=== PATIENT | male | born 1980 ===

== ENCOUNTER 2022-05-23 13:07 | Inpatient (IN) | payer OTHER ==
[2022-05-23] MEDS ORDERED: MORPHINE 4 MG/1 ML INJ IV ONE (13:44)
[2022-05-23] MEDS ORDERED: PANTOPRAZOLE 40 MG INJ IV ONE (13:44)
[2022-05-23] MEDS ORDERED: SODIUM CHLORIDE 0.9% 1000 ML 1,000 ML IV ONE (13:44)
[2022-05-23] MEDS ORDERED: THIAMINE 100 MG, FOLIC ACID 1 MG, MULTIPLE VITAMIN INJ, ADULT 10 ML in SODIUM CHLORIDE ... IV ONE (13:44)
[2022-05-23] MEDS ORDERED: ONDANSETRON 4 MG/2 ML INJ IV ONE (13:44)
[2022-05-23] MEDS ORDERED: chlordiazePOXIDE 25 MG CAP PO PRN (13:44)
[2022-05-23] MEDS ORDERED: LORazepam 2 MG/ML VIAL IV PRN ×3 (13:44)
[2022-05-23] MEDS ORDERED: diazePAM 10 MG/2 ML SYRINGE IV ONE (13:44)
--- NOTE | 2022-05-23 13:46 | Emergency Department Report ---
ED General Adult HPI - General Chief complaint: Alcohol Stated complaint: STOMACH PAIN AND NAUSEA Time Seen by Provider: 05/23/22 13:36 Source: patient, family Mode of arrival: Wheelchair Limitations: Language Barrier (Family at the bedside translating for patient. This provider is conversant in Azerbaijani) - History of Present Illness Initial comments: The patient was evaluated in the emergency department for symptoms described in the history of present illness. He/she was evaluated in the context of the global COVID-19 pandemic, which necessitated consideration that the patient might be at risk for infection with the virus that causes COVID-19. Institutional protocols and algorithms that pertain to the evaluation of patients at risk for COVID-19 are in a state of rapid change based on information released by regulatory bodies including the CDC and federal and state organizations. These policies and algorithms were followed during the patient's care in the emergency department. Please note that these policies, procedures and recommendations changed on a rapid basis. This is a 42-year-old gentleman who recently completed an alcoholic binge after 2 weeks, presenting to the department today with complaint of diffuse abdominal pain, nausea vomiting cough. No urinary symptoms. He is not homicidal or suicidal. Abdominal pain is diffuse, increases with palpation and decreases with rest. No fever. No hallucinations -: Gradual, days(s) Location: abdomen Severity scale (0 -10): 5 Consistency: constant Improves with: medication, rest Worsens with: movement - Related Data Previous Rx's Medication Instructions Recorded Last Taken Type Magnesium Oxide 400 mg PO QDAY #30 tab 05/23/22 Unknown Rx Metoclopramide [Reglan] 10 mg PO QID PRN #30 tablet 05/23/22 Unknown Rx Multivitamin with Folic Acid [[facility] 400 mcg PO QDAY #30 tablet 05/23/22 Unknown Rx One Daily Essential Tablet] Pantoprazole [Protonix TAB] 20 mg PO BID #60 tab 05/23/22 Unknown Rx Potassium Chloride [K-Dur] 20 meq PO BID #60 tab 05/23/22 Unknown Rx chlordiazePOXIDE [Librium] 25 mg PO Q6H PRN #25 capsule 05/23/22 Unknown Rx Allergies Allergy/AdvReac Type Severity Reaction Status Date / Time No Known Allergies Allergy Unverified 05/23/22 13:24 ED Review of Systems ROS: Stated complaint: STOMACH PAIN AND NAUSEA Other details as noted in HPI Constitutional: denies: fever Eyes: denies: eye discharge ENT: denies: epistaxis Respiratory: cough Cardiovascular: denies: chest pain Gastrointestinal: abdominal pain, nausea, vomiting Genitourinary: denies: dysuria Musculoskeletal: myalgia Neurological: weakness Psychiatric: anxiety. denies: homicidal thoughts, suicidal thoughts ED Past Medical Hx - Past Medical History Previous Medical History?: Yes Additional medical history: Alcohol abuse - Surgical History Past Surgical History?: No - Medications Home Medications: Home Medications Medication Instructions Recorded Confirmed Last Taken Type Magnesium Oxide 400 mg PO QDAY #30 tab 05/23/22 Unknown Rx Metoclopramide [Reglan] 10 mg PO QID PRN #30 tablet 05/23/22 Unknown Rx Multivitamin with Folic Acid [[facility] 400 mcg PO QDAY #30 tablet 05/23/22 Unknown Rx One Daily Essential Tablet] Pantoprazole [Protonix TAB] 20 mg PO BID #60 tab 05/23/22 Unknown Rx Potassium Chloride [K-Dur] 20 meq PO BID #60 tab 05/23/22 Unknown Rx chlordiazePOXIDE [Librium] 25 mg PO Q6H PRN #25 capsule 05/23/22 Unknown Rx ED Physical Exam - General Limitations: No Limitations General appearance: alert, anxious, in distress, obese - Head Head exam: Present: atraumatic, normocephalic - Eye Eye exam: Present: normal appearance, EOMI. Absent: nystagmus - ENT ENT exam: Present: normal orophraynx, mucous membranes dry, normal external ear exam, other (Tongue fasciculations noted) - Neck Neck exam: Present: normal inspection, full ROM. Absent: tenderness, meningismus - Respiratory Respiratory exam: Present: normal lung sounds bilaterally. Absent: respiratory distress, wheezes, rales, rhonchi, stridor, decreased breath sounds - Cardiovascular Cardiovascular Exam: Present: regular rate, normal rhythm, normal heart sounds. Absent: bradycardia, tachycardia, irregular rhythm, systolic murmur, diastolic murmur, rubs, gallop - GI/Abdominal GI/Abdominal exam: Present: soft, distended, tenderness, other (There is diffuse abdominal tenderness.). Absent: guarding, rebound, rigid, pulsatile mass - Rectal Rectal exam: Present: deferred - Extremities Exam Extremities exam: Present: normal inspection, full ROM, other (2+ pulses noted in the bilateral upper and lower extremities. There is no palpable cord. negative Homans sign. Muscular compartments are soft. The pelvis is stable.). Absent: pedal edema, calf tenderness - Back Exam Back exam: Present: normal inspection. Absent: tenderness, CVA tenderness (R), CVA tenderness (L), paraspinal tenderness, vertebral tenderness - Neurological Exam Neurological exam: Present: alert, other (There is no facial droop. The tongue is midline. EOMI. 5 out of 5 strength in 4 extremities.) - Psychiatric Psychiatric exam: Present: anxious. Absent: homicidal ideation, suicidal ideation - Skin Skin exam: Present: warm, dry, intact, normal color. Absent: rash ED Course Vital Signs 05/23/22 05/23/22 05/23/22 13:24 14:52 14:59 Temperature 98.2 F Pulse Rate 89 75 Respiratory 20 18 Rate Blood Pressure 162/99 [Right] O2 Sat by Pulse 97 97 98 Oximetry - Reevaluation(s) Reevaluation #1: 05/23/22 15:15 Differential diagnosis, include but not limited to: Pancreatitis, alcoholic gastritis, alcohol withdrawal, electrolyte derangement, dehydration Assessment and plan: 42-year-old gentleman presenting with diffuse abdominal pain, nausea and vomiting, mild tongue fasciculations, and anxiety, without homicidality or suicidality, in the context of recent alcoholic binge. Suspect alcoholic hepatitis and gastritis, with mild withdrawal component at this time. Place patient on alcohol withdrawal protocol. Treat nausea, vomiting, and replenish electrolytes. Obtain x-ray of the chest, EKG, and CT scan of the abdomen pelvis. Reassess. Have discussed the plan of care with patient and family member at the bedside. They have articulated understanding. He does not meet criteria for 1013 hold or involuntary confinement 05/23/22 16:14 ciwa score initially 7, now 2 Found to have transaminitis, hyperbilirubinemia, metabolic acidosis, all likely secondary to alcoholism. Right upper quadrant ultrasound, as per CT scan of the abdomen pelvis, suggested distended gallbladder. I think cholecystitis is less likely than alcoholic hepatitis. No active vomiting. Tongue fasciculations improved. 05/23/22 16:56 I have reviewed right upper quadrant sound. I do not appreciate evidence of cholecystitis. Patient asking to eat. No active vomiting. He is given Jell-O. Awaiting formal interpretation. 05/23/22 17:00 Patient now vomiting. He will be made NPO. Nursing team uncertain if antiemetics have been administered. This has been escalated to the charge nurse, Jessy Mera to clarify. 05/23/22 17:02 Nursing team reports that they were able to give his Zofran. I have now ordered Reglan. 05/23/22 17:20 Right upper quadrant ultrasound negative for significant findings. Reglan ordered. IV potassium and magnesium infusion. We will determine if patient can tolerate oral feeds after this therapy 05/23/22 18:22 ciwa score 29 Patient has received multiple rounds of antiemetic medication, as well as multiple rounds of benzodiazepines. Patient cannot be medically optimized from the emergency room. I will therefore admit the patient to the medical service. He is endorsed to hospital physician, Dr. Simpson ED Medical Decision Making - Lab Data Result diagrams: 05/23/22 13:49 05/23/22 13:49 Vital Signs 05/23/22 05/23/22 05/23/22 13:24 14:52 14:59 Temperature 98.2 F Pulse Rate 89 75 Respiratory 20 18 Rate Blood Pressure 162/99 [Right] O2 Sat by Pulse 97 97 98 Oximetry Lab Results 05/23/22 05/23/22 05/23/22 Range/Units 13:49 13:49 13:49 WBC 10.4 (4.5-11.0) K/mm3 RBC 5.09 H (3.65-5.03) M/mm3 Hgb 16.2 H (11.8-15.2) gm/dl Hct 47.7 H (35.5-45.6) % MCV 94 (84-94) fl MCH 32 (28-32) pg MCHC 34 (32-34) % RDW 14.1 (13.2-15.2) % Plt Count 121 L (140-440) K/mm3 Lymph % (Auto) 8.6 L (13.4-35.0) % Centre % (Auto) 6.8 (0.0-7.3) % Eos % (Auto) 0.0 (0.0-4.3) % Baso % (Auto) 0.4 (0.0-1.8) % Lymph # (Auto) 0.9 L (1.2-5.4) K/mm3 Centre # (Auto) 0.7 (0.0-0.8) K/mm3 Eos # (Auto) 0.0 (0.0-0.4) K/mm3 Baso # (Auto) 0.0 (0.0-0.1) K/mm3 Seg Neutrophils % 84.2 H (40.0-70.0) % Seg Neutrophils # 8.7 H (1.8-7.7) K/mm3 PT (12.2-14.9) Sec. INR (0.87-1.13) APTT (24.2-36.6) Sec. Sodium 135 L (137-145) mmol/L Potassium 3.2 L (3.6-5.0) mmol/L Chloride 92.1 L (98-107) mmol/L Carbon Dioxide 24 (22-30) mmol/L Anion Gap 22 mmol/L BUN 8 L (9-20) mg/dL Creatinine 0.5 L (0.8-1.3) mg/dL Estimated GFR > 60 ml/min BUN/Creatinine Ratio 16 % Glucose 175 H (75-100) mg/dL Calcium 9.3 (8.4-10.2) mg/dL Magnesium (1.7-2.3) mg/dL Total Bilirubin (0.1-1.2) mg/dL Direct Bilirubin (0-0.2) mg/dL Indirect Bilirubin mg/dL AST (5-40) units/L ALT (7-56) units/L Alkaline Phosphatase (35-129) units/L Total Protein (6.3-8.2) g/dL Albumin (3.9-5) g/dL Albumin/Globulin Ratio % Lipase (13-60) units/L Salicylates (2.8-20.0) mg/dL Acetaminophen (10.0-30.0) ug/mL Plasma/Serum Alcohol < 0.01 (0-0.07) % 05/23/22 05/23/22 05/23/22 Range/Units 13:51 13:51 13:51 WBC (4.5-11.0) K/mm3 RBC (3.65-5.03) M/mm3 Hgb (11.8-15.2) gm/dl Hct (35.5-45.6) % MCV (84-94) fl MCH (28-32) pg MCHC (32-34) % RDW (13.2-15.2) % Plt Count (140-440) K/mm3 Lymph % (Auto) (13.4-35.0) % Centre % (Auto) (0.0-7.3) % Eos % (Auto) (0.0-4.3) % Baso % (Auto) (0.0-1.8) % Lymph # (Auto) (1.2-5.4) K/mm3 Centre # (Auto) (0.0-0.8) K/mm3 Eos # (Auto) (0.0-0.4) K/mm3 Baso # (Auto) (0.0-0.1) K/mm3 Seg Neutrophils % (40.0-70.0) % Seg Neutrophils # (1.8-7.7) K/mm3 PT (12.2-14.9) Sec. INR (0.87-1.13) APTT (24.2-36.6) Sec. Sodium (137-145) mmol/L Potassium (3.6-5.0) mmol/L Chloride (98-107) mmol/L Carbon Dioxide (22-30) mmol/L Anion Gap mmol/L BUN (9-20) mg/dL Creatinine (0.8-1.3) mg/dL Estimated GFR ml/min BUN/Creatinine Ratio % Glucose (75-100) mg/dL Calcium (8.4-10.2) mg/dL Magnesium 1.50 L (1.7-2.3) mg/dL Total Bilirubin (0.1-1.2) mg/dL Direct Bilirubin (0-0.2) mg/dL Indirect Bilirubin mg/dL AST (5-40) units/L ALT (7-56) units/L Alkaline Phosphatase (35-129) units/L Total Protein (6.3-8.2) g/dL Albumin (3.9-5) g/dL Albumin/Globulin Ratio % Lipase 21 (13-60) units/L Salicylates < 0.3 L (2.8-20.0) mg/dL Acetaminophen 5.0 L (10.0-30.0) ug/mL Plasma/Serum Alcohol (0-0.07) % 05/23/22 05/23/22 Range/Units 13:51 13:51 WBC (4.5-11.0) K/mm3 RBC (3.65-5.03) M/mm3 Hgb (11.8-15.2) gm/dl Hct (35.5-45.6) % MCV (84-94) fl MCH (28-32) pg MCHC (32-34) % RDW (13.2-15.2) % Plt Count (140-440) K/mm3 Lymph % (Auto) (13.4-35.0) % Centre % (Auto) (0.0-7.3) % Eos % (Auto) (0.0-4.3) % Baso % (Auto) (0.0-1.8) % Lymph # (Auto) (1.2-5.4) K/mm3 Centre # (Auto) (0.0-0.8) K/mm3 Eos # (Auto) (0.0-0.4) K/mm3 Baso # (Auto) (0.0-0.1) K/mm3 Seg Neutrophils % (40.0-70.0) % Seg Neutrophils # (1.8-7.7) K/mm3 PT 13.5 (12.2-14.9) Sec. INR 0.93 (0.87-1.13) APTT 26.6 (24.2-36.6) Sec. Sodium (137-145) mmol/L Potassium (3.6-5.0) mmol/L Chloride (98-107) mmol/L Carbon Dioxide (22-30) mmol/L Anion Gap mmol/L BUN (9-20) mg/dL Creatinine (0.8-1.3) mg/dL Estimated GFR ml/min BUN/Creatinine Ratio % Glucose (75-100) mg/dL Calcium (8.4-10.2) mg/dL Magnesium (1.7-2.3) mg/dL Total Bilirubin 1.80 H (0.1-1.2) mg/dL Direct Bilirubin 0.5 H (0-0.2) mg/dL Indirect Bilirubin 1.3 mg/dL AST 230 H (5-40) units/L ALT 148 H (7-56) units/L Alkaline Phosphatase 142 H (35-129) units/L Total Protein 7.5 (6.3-8.2) g/dL Albumin 5.0 (3.9-5) g/dL Albumin/Globulin Ratio 2.0 % Lipase (13-60) units/L Salicylates (2.8-20.0) mg/dL Acetaminophen (10.0-30.0) ug/mL Plasma/Serum Alcohol (0-0.07) % - EKG Data -: EKG Interpreted by Nh EKG shows normal: sinus rhythm Rate: normal - EKG Data 05/23/22 15:13 The EKG is interpreted at 14: 28 Sinus rhythm, 73 bpm. Borderline leftward axis deviation, motion artifact, QTC 500 ms. High left ventricular voltage. Abnormal EKG. This is not a STEMI. Q waves noted in the inferior leads. - Radiology Data Radiology results: pending, report reviewed, image reviewed CHEST 1 VIEW INDICATION / CLINICAL INFORMATION: n/v cough chest wall pain. COMPARISON: None available. FINDINGS: SUPPORT DEVICES: None. HEART / MEDIASTINUM: No significant abnormality. LUNGS / PLEURA: No significant pulmonary or pleural abnormality. No pneumothorax. ADDITIONAL FINDINGS: No significant additional findings. IMPRESSION: 1. No acute findings. Signer Lee e: Charity Beckett MD Signed: 05/23/2022 1:01 PM Workstation Name: [id number] CT abdomen pelvis w con INDICATION / CLINICAL INFORMATION: acute abd pain n/v. TECHNIQUE: Axial CT imaging of abdomen and pelvis was obtained with 80 mL Omnipaque 300 IV contrast. Coronal and sagittal reformatted imaging obtained and reviewed. All CT scans at this location are performed using CT dose reduction for ALARA by means of automated exposure control. COMPARISON: None available. FINDINGS: Demonstrates hepatomegaly due to severe hepatic steatosis. No focal hepatic abnormality noted. Spleen, pancreas, kidneys, and adrenal glands all appear within normal limits. The gallbladder is mildly distended but does not appear to be acutely inflamed. No biliary dilatation. Abdominal aorta is unremarkable. CT pelvis with contrast does not demonstrate any mass, free fluid, or focal inflammatory process. A normal appendix is present in the right midabdomen. GI tract is unremarkable. Prostate gland has normal appearance and size. Visualized lung bases are clear. No acute osseous abnormality identified. IMPRESSION: 1. Mild hepatomegaly due to severe hepatic steatosis. 2. Mild gallbladder distention without CT suggestion for acute cholecystitis. If there is clinical concern for acute cholecystitis, right upper quadrant ultrasound is recommended. Signer Name: Charity Beckett MD Signed: 05/23/2022 2:32 PM Workstation Name: [id number] ULTRASOUND ABDOMEN, LIMITED INDICATION / CLINICAL INFORMATION: Abdominal pain, transaminitis. COMPARISON: CT abdomen/pelvis 05/23/2022 FINDINGS: PANCREAS: V isualized portion shows no significant abnormality. LIVER: The liver is enlarged measuring approximately 20 cm. The liver parenchyma is diffusely echogenic consistent with hepatic steatosis. No focal liver mass noted. Normal hepatopedal blood flow in the main portal vein. GALLBLADDER: Gallbladder is mildly distended but otherwise unremarkable. No gallstones or gallbladder wall thickening is present. BILE DUCTS: No significant abnormality. Common bile duct measures 4 mm. FREE FLUID: None. ADDITIONAL FINDINGS: None. IMPRESSION: 1. Hepatomegaly due to severe hepatic steatosis. 2. Mild gallbladder distention. Negative for gallstones and gallbladder wall thickening. Signer Name: Charity Beckett MD Signed: 05/23/2022 4:01 PM Workstation Name: [id number] Critical care attestation.: If time is entered above; I have spent that time in minutes in the direct care of this critically ill patient, excluding procedure time. ED Disposition Clinical Impression: Hypomagnesemia, Hypokalemia, Acute abdominal pain, Alcoholic hepatitis, Dehydration, Acute hyperactive alcohol withdrawal delirium Disposition: 09 ADMITTED INPATIENT Is pt being admited?: Yes Does the pt Need Aspirin: No Condition: Serious Additional Instructions: Avoid consumption of alcohol, tobacco and smoke products. Take a multivitamin on a daily basis as directed, and patient is encouraged to consume foods that are high in potassium and magnesium, such as banana, avocado, and potato. Do not take Motrin, ibuprofen, Naprosyn, Aleve, heavy or spicy foods. Patient may take the prescribed pain medication, nausea medication, as needed, take the Librium as needed for sensation of alcohol withdrawal and shaking, nausea medication as needed, and potassium/magnesium supplementation as directed. Recommend that patient follow-up with a primary care doctor or outdoor emergency care technician within the next week. Do not take metformin medication for the next 2 days if patient takes this medication. Please return to the emergency room right away with new pain, worsened pain, migration of pain, projectile vomiting, change in mental status, confusion, inability tolerate liquid feeds, new, worsened or different symptoms not present on the initial emergency room evaluation Evitar el consumo de alcohol, tabaco y productos de humo. Martelle un multivitamnico diariamente segn las indicaciones, y se alienta al paciente a consumir alimentos con alto contenido de potasio y magnesio, shaneka pltano, aguacate y papa. No tome Motrin, ibuprofeno, Naprosyn, Aleve, comidas pesadas o picantes. El paciente puede aysha el medicamento para el dolor recetado, medicamento para las nuseas, segn sea necesario, aysha Librium segn sea necesario para la sensacin de abstinencia de alcohol y temblores, medicamento para las nuseas segn sea necesario y suplementos de potasio/magnesio segn las indicaciones. Recomiende el seguimiento del paciente con un mdico de atencin primaria o un gastroenterlogo dentro de la prxima semana. No tome metformina loi los prximos 2 lutz si el paciente irene fredo medicamento. Regrese a la benjamin de emergencias de inmediato con dolor nuevo, empeoramiento del dolor, migracin del dolor, vmitos proyectiles, cambio en el estado mental, confusin, incapacidad para tolerar alimentos lquidos, sntomas nuevos, empeorados o diferentes que no estaban presentes en la evaluacin inicial de la benjamin de emergencias. Prescriptions: Multivitamin with Folic Acid [[facility]vs One Daily Essential Tablet] 400 mcg PO QDAY #30 tablet Potassium Chloride [K-Dur] 20 meq PO BID #60 tab chlordiazePOXIDE [Librium] 25 mg PO Q6H PRN #25 capsule PRN Reason: Alcohol Withdrawal Magnesium Oxide 400 mg PO QDAY #30 tab Pantoprazole [Protonix TAB] 20 mg PO BID #60 tab Metoclopramide [Reglan] 10 mg PO QID PRN #30 tablet PRN Reason: Nausea Referrals: [facility] [Provider Group] - 3-5 Days [facility] [place] [Provider Group] - 3-5 Days
--- NOTE | 2022-05-23 14:06 | XRay Report ---
CHEST 1 VIEW INDICATION / CLINICAL INFORMATION: n/v cough chest wall pain. COMPARISON: None available. FINDINGS: SUPPORT DEVICES: None. HEART / MEDIASTINUM: No significant abnormality. LUNGS / PLEURA: No significant pulmonary or pleural abnormality. No pneumothorax. ADDITIONAL FINDINGS: No significant additional findings. IMPRESSION: 1. No acute findings. Signer Name: Charity Beckett MD Signed: 05/23/2022 2:01 PM Workstation Name: [id number]
[2022-05-23 14:24] LABS: Basophils % (Auto) 0.4 % (0.0-1.8); Hematocrit 47.7 % (35.5-45.6); Hemoglobin 16.2 gm/dl (11.8-15.2); Lymphocytes # (Auto) 0.9 K/mm3 (1.2-5.4); Lymphocytes % (Auto) 8.6 % (13.4-35.0); Mean Corpuscular HGB Conc 34 % (32-34); Mean Corpuscular Volume 94 fl (84-94); Monocytes # (Auto) 0.7 K/mm3 (0.0-0.8); Monocytes % (Auto) 6.8 % (0.0-7.3); Platelet Count 121 K/mm3 (140-440); Red Blood Count 5.09 M/mm3 (3.65-5.03); Red Cell Distribution Width 14.1 % (13.2-15.2)
[2022-05-23 14:34] LABS: Blood Urea Nitrogen 8 mg/dL (9-20); Calcium 9.3 mg/dL (8.4-10.2); Hemolysis Index 28
[2022-05-23 14:36] LABS: Bilirubin,Direct 0.5 mg/dL (0-0.2)
[2022-05-23] MEDS ORDERED: MAGNESIUM SULFATE 2 GM/50 ML BAG IV ONE (14:43)
[2022-05-23 14:44] LABS: INR 0.93 (0.87-1.13)
[2022-05-23 14:45] LABS: Partial Thromboplastin Time 26.6 Sec. (24.2-36.6)
[2022-05-23 14:52] LABS: BUN/Creatinine Ratio 16
[2022-05-23] MEDS ORDERED: POTASSIUM CHLORIDE ER 20 MEQ TAB PO ONE (15:11)
[2022-05-23] MEDS ORDERED: MAGNESIUM OXIDE 400 MG TAB PO STA (15:11)
--- NOTE | 2022-05-23 15:36 | Cat Scan Report ---
CT abdomen pelvis w con INDICATION / CLINICAL INFORMATION: acute abd pain n/v. TECHNIQUE: Axial CT imaging of abdomen and pelvis was obtained with 80 mL Omnipaque 300 IV contrast. Coronal and sagittal reformatted imaging obtained and reviewed. All CT scans at this location are performed usi ng CT dose reduction for ALARA by means of automated exposure control. COMPARISON: None available. FINDINGS: Demonstrates hepatomegaly due to severe hepatic steatosis. No focal hepatic abnormality noted. Spleen , pancreas, kidneys, and adrenal glands all appear within normal limits. The gallbladder is mildly distended but does not appear to be acutely inflamed. No biliary dilatation . Abdominal aorta is unremarkable. CT pelvis with contrast does not demonstrate any mass, free fluid, or focal inflammatory process. A n ormal appendix is present in the right midabdomen. GI tract is unremarkable. Prostate gland has lloyd l appearance and size. Visualized lung bases are clear. No acute osseous abnormality identified. IMPRESSION: 1. Mild hepatomegaly due to severe hepatic steatosis. 2. Mild gallbladder distention without CT suggestion for acute cholecystitis. If there is clinical co ncern for acute cholecystitis, right upper quadrant ultrasound is recommended. Signer Name: Charity Beckett MD Signed: 05/23/2022 3:32 PM Workstation Name: [id number]
[2022-05-23] MEDS ORDERED: METOCLOPRAMIDE 10 MG/2 ML INJ IV ONE (17:01)
--- NOTE | 2022-05-23 17:06 | Ultrasound Report ---
ULTRASOUND ABDOMEN, LIMITED INDICATION / CLINICAL INFORMATION: Abdominal pain, transaminitis. COMPARISON: CT abdomen/pelvis 05/23/2022 FINDINGS: PANCREAS: Visualized portion shows no significant abnormality. LIVER: The liver is enlarged measuring approximately 20 cm. The liver parenchyma is diffusely echogen ic consistent with hepatic steatosis. No focal liver mass noted. Normal hepatopedal blood flow in the main portal vein. GALLBLADDER: Gallbladder is mildly distended but otherwise unremarkable. No gallstones or gallbladder wall thickening is present. BILE DUCTS: No significant abnormality. Common bile duct measures 4 mm. FREE FLUID: None. ADDITIONAL FINDINGS: None. IMPRESSION: 1. Hepatomegaly due to severe hepatic steatosis. 2. Mild gallbladder distention. Negative for gallstones and gallbladder wall thickening. Signer Name: Charity Beckett MD Signed: 05/23/2022 5:01 PM Workstation Name: [id number]
[2022-05-23] MEDS: POTASSIUM CHLORIDE 10 MEQ 10 MEQ/100 ML BAG IV SCH (17:39)
--- NOTE | 2022-05-23 18:23 | History and Physical Report ---
History of Present Illness Chief complaint: My stomach hurts History of present illness: 42 YO Male with ETOH Dependence, GERD presents to ED for evaluation. Patient reports "my stomach hurts". Patient states that he has experienced abdominal discomfort over the past 2 days. Patient acknowledges a 2-week alcohol in gestion binge. Patient states that abdominal pain is 5/10, constant, diffuse without exacerbating or alleviating factors. Patient has diminished cognition and provides minimal history. Additional history provided by family members. Patient family reports tremors, abdominal discomfort, agitation, diaphoresis, restlessness, irritability, nausea, and multiple episodes of vomiting. Patient transported to [facility] via private vehicle for further care and evaluation of the aforementioned symptoms. The patient was seen and evaluated in the emergency department. All lab and imaging studies reviewed. Patient found to have a delirium tremens, alcohol withdrawal syndrome, and alcoholic hepatitis, and metabolic encephalopathy. Patient admitted to [facility] due to the increased risk of worsening symptoms and for medical stabilization. Patient initiated on CIWA protocol with an AED. Patient has tangential thinking but has a positive gag reflex and is able to protect his airway without difficulty. No reports of fever, chills, chest pain, palpitation, productive cough, skin rash, recent contact, known exposure to COVID-19. No prior admission for review. All medication listed at time of admission has been reconciled. Advanced care planning conducted in ED. Past History Past Medical History: other (See HPI) Past Surgical History: No surgical history, Other (Reviewed) Social history: single, alcohol abuse Family history: hypertension Medications and Allergies Allergies Allergy/AdvReac Type Severity Reaction Status Date / Time No Known Allergies Allergy Unverified 05/23/22 13:24 Home Medications Medication Instructions Recorded Confirmed Last Taken Type Magnesium Oxide 400 mg PO QDAY #30 tab 05/23/22 Unknown Rx Metoclopramide [Reglan] 10 mg PO QID PRN #30 tablet 05/23/22 Unknown Rx Multivitamin with Folic Acid [Cvs 400 mcg PO QDAY #30 tablet 05/23/22 Unknown Rx One Daily Essential Tablet] Pantoprazole [Protonix TAB] 20 mg PO BID #60 tab 05/23/22 Unknown Rx Potassium Chloride [K-Dur] 20 meq PO BID #60 tab 05/23/22 Unknown Rx chlordiazePOXIDE [Librium] 25 mg PO Q6H PRN #25 capsule 05/23/22 Unknown Rx Active Meds: Active Medications Chlordiazepoxide HCl (Chlordiazepoxide 25 Mg Cap) 50 mg PO Q1HR PRN PRN Reason: CIWA-Ar 8-15 Potassium Chloride (Kcl 10meq/100ml) 10 meq in 100 mls @ 100 mls/hr IV Q1H LAURI Stop: 05/23/22 19:59 Last Admin: 05/23/22 17:39 Dose: 100 mls/hr Lorazepam (Lorazepam 2 Mg/Ml Vial) 2 mg IV Q1HR PRN PRN Reason: CIWA-Ar 8-15 Lorazepam (Lorazepam 2 Mg/Ml Vial) 4 mg IV Q1HR PRN PRN Reason: CIWA-Ar 16-25 Lorazepam (Lorazepam 2 Mg/Ml Vial) 4 mg IV Q15MIN PRN PRN Reason: CIWA-Ar >25 Last Admin: 05/23/22 18:09 Dose: 4 mg Review of Systems ROS unobtainable: due to mental status Exam - Constitutional Vitals: Temp Pulse Resp BP Pulse Ox 98.2 F 75 18 162/99 98 05/23/22 13:24 05/23/22 14:52 05/23/22 14:52 05/23/22 13:24 05/23/22 14:59 General appearance: Present: mild distress - EENT Eyes: Present: PERRL ENT: hearing intact, clear oral mucosa - Neck Neck: Present: supple, normal ROM - Respiratory Respiratory effort: normal Respiratory: bilateral: CTA - Cardiovascular Rhythm: other (Tachycardia) Heart Sounds: Present: S1 & S2. Absent: rub, click - Extremities Extremities: pulses symmetrical, No edema Peripheral Pulses: within normal limits - Abdominal General gastrointestinal: Present: soft, non-tender, non-distended - Integumentary Integumentary: Present: dry, clammy, decreased turgor - Musculoskeletal Musculoskeletal: generalized weakness - Psychiatric Psychiatric: no appropriate mood/affect, no intact judgment & insight, no memory intact - Neurologic Neurologic: CNII-XII intact, no focal deficits, moves all extremities, no gait normal Results - Labs CBC & Chem 7: 05/23/22 13:49 05/23/22 13:49 Labs: Abnormal lab results 05/23/22 05/23/22 05/23/22 Range/Units 13:49 13:49 13:51 RBC 5.09 H (3.65-5.03) M/mm3 Hgb 16.2 H (11.8-15.2) gm/dl Hct 47.7 H (35.5-45.6) % Plt Count 121 L (140-440) K/mm3 Lymph % (Auto) 8.6 L (13.4-35.0) % Lymph # (Auto) 0.9 L (1.2-5.4) K/mm3 Seg Neutrophils % 84.2 H (40.0-70.0) % Seg Neutrophils # 8.7 H (1.8-7.7) K/mm3 Sodium 135 L (137-145) mmol/L Potassium 3.2 L (3.6-5.0) mmol/L Chloride 92.1 L (98-107) mmol/L BUN 8 L (9-20) mg/dL Creatinine 0.5 L (0.8-1.3) mg/dL Glucose 175 H (75-100) mg/dL Magnesium 1.50 L (1.7-2.3) mg/dL Total Bilirubin (0.1-1.2) mg/dL Direct Bilirubin (0-0.2) mg/dL AST (5-40) units/L ALT (7-56) units/L Alkaline Phosphatase (35-129) units/L Salicylates (2.8-20.0) mg/dL Acetaminophen (10.0-30.0) ug/mL 05/23/22 05/23/22 05/23/22 Range/Units 13:51 13:51 13:51 RBC (3.65-5.03) M/mm3 Hgb (11.8-15.2) gm/dl Hct (35.5-45.6) % Plt Count (140-440) K/mm3 Lymph % (Auto) (13.4-35.0) % Lymph # (Auto) (1.2-5.4) K/mm3 Seg Neutrophils % (40.0-70.0) % Seg Neutrophils # (1.8-7.7) K/mm3 Sodium (137-145) mmol/L Potassium (3.6-5.0) mmol/L Chloride (98-107) mmol/L BUN (9-20) mg/dL Creatinine (0.8-1.3) mg/dL Glucose (75-100) mg/dL Magnesium (1.7-2.3) mg/dL Total Bilirubin 1.80 H (0.1-1.2) mg/dL Direct Bilirubin 0.5 H (0-0.2) mg/dL AST 230 H (5-40) units/L ALT 148 H (7-56) units/L Alkaline Phosphatase 142 H (35-129) units/L Salicylates < 0.3 L (2.8-20.0) mg/dL Acetaminophen 5.0 L (10.0-30.0) ug/mL Assessment and Plan - Patient Problems (1) Delirium tremens Status: Acute Plan to address problem: Alcohol withdrawal protocol, seizure precautions, aspiration precautions, fall precautions, neuro check, IV fluid resuscitation therapy, thiamine, folic acid, multivitamin, banana bag. (2) Alcohol withdrawal syndrome Status: Acute Qualifiers: Complication of substance-induced condition: with delirium Qualified Code(s): F10.931 - Alcohol use, unspecified with withdrawal delirium Plan to address problem: IV fluid resuscitation therapy, CIWA protocol, thiamine, folic acid, multivitamin daily, banana bag, neuro check, seizure precautions. (3) Metabolic encephalopathy Status: Acute Plan to address problem: Neuro check, seizure precaution, aspiration precaution, fall precaution, IV fluid resuscitation therapy. (4) Alcoholic hepatitis Status: Acute Qualifiers: Ascites presence: without ascites Qualified Code(s): K70.10 - Alcoholic hepatitis without ascites Plan to address problem: Supportive care. Secondary to alcohol dependence, alcohol cessation, supportive care. Repeat LFT in AM. (5) Hypokalemia Status: Acute Plan to address problem: Repleted in ED. (6) DVT prophylaxis Status: Acute Plan to address problem: SCD to bilateral lower extremities while in bed (7) Advance care planning Status: Acute Plan to address problem: Disease education done, care plan discussed, diagnoses discussed, prognosis discussed, patient is full code. Patient family acknowledged understanding and agreement with care plan, +30 minutes. (8) Preventative health care Status: Acute Plan to address problem: Patient and family counseled regarding alcohol cessation, outpatient follow-up with Alcoholics Anonymous, outpatient follow-up with primary physician for all age and risk factor appropriate screening test. Outpatient GI follow-up for alcoholic liver disease. +30 minutes.
[2022-05-23] MEDS ORDERED: ACETAMINOPHEN 325 MG TAB PO PRN (18:24)
[2022-05-23] MEDS ORDERED: ONDANSETRON 4 MG/2 ML INJ IV PRN (18:24)
[2022-05-23] MEDS ORDERED: ALBUTEROL 2.5 MG/3 ML NEBU IH PRN (18:29)
[2022-05-23] MEDS ORDERED: MORPHINE 4 MG/1 ML INJ IV PRN (18:29)
[2022-05-23] MEDS ORDERED: oxyCODONE /ACETAMINOPHEN 5-325MG TAB PO PRN (18:29)
[2022-05-23] MEDS ORDERED: SODIUM CHLORIDE 0.9% 1000 ML 1,000 ML IV SCH (18:30)
[2022-05-23] MEDS ORDERED: MULTIVITAMINS ,THERAPEUTIC TAB PO ONE (18:31)
[2022-05-23] MEDS ORDERED: THIAMINE 100 MG TAB PO ONE (18:31)
[2022-05-24] MEDS: POTASSIUM CHLORIDE 10 MEQ 10 MEQ/100 ML BAG IV SCH (00:33)
[2022-05-24 05:35] LABS: Alanine Aminotransferase 108 units/L (7-56); Albumin 4.1 g/dL (3.9-5); Blood Urea Nitrogen 8 mg/dL (9-20); Calcium 8.4 mg/dL (8.4-10.2); Hemolysis Index 7
[2022-05-24 05:37] LABS: BUN/Creatinine Ratio 16
[2022-05-24] MEDS ORDERED: FOLIC ACID 1 MG TAB PO SCH (10:00)
--- NOTE | 2022-05-24 11:51 | Discharge Summary ---
Providers - Providers Date of Admission: 05/23/22 18:24 Attending physician: EDGARDO DAVIS MD Primary care physician: INSURANCE INSTRUCTOR Hospitalization Reason for admission: Delirium Condition: Stable Hospital course: 42 YO Male with ETOH Dependence, GERD presents to ED for evaluation. Patient reports "my stomach hurts". Patient states that he has experienced abdominal d iscomfort over the past 2 days. Patient acknowledges a 2-week alcohol ingestion binge. Patient states that abdominal pain is 5/10, constant, diffuse without exacerbating or alleviating factors. Patient has diminished cognition and provides minimal history. Additional history provided by family members. Patient family reports tremors, abdominal discomfort, agitation, diaphoresis, restlessness, irritability, nausea, and multiple episodes of vomiting. Patient transported to [facility] via private vehicle for further care and evaluation of the aforementioned symptoms. The patient was seen and evaluated in the emergency department. All lab and imaging studies reviewed. Patient found to have a delirium tremens, alcohol withdrawal syndrome, and alcoholic hepatitis, and metabolic encephalopathy. Patient admitted to [facility] due to the increased risk of worsening symptoms and for medical stabilization. Patient initiated on CIWA protocol with an AED. Patient has tangential thinking but has a positive gag reflex and is able to protect his airway without difficulty. No reports of fever, chills, chest pain, palpitation, productive cough, skin rash, recent contact, known exposure to COVID-19. No prior admission for review. All medication listed at time of admission has been reconciled. Advanced care planning conducted in ED. Patient admission had imaging studies which did not show any evidence of cholecystitis but showed hepatomegaly and distended gallbladder. Patient was started on CIWA protocol and hydration. He clinically improved this morning his mental status is improving denies any abdominal pain he is tolerating p.o. intake. He is alert awake oriented x3. And cleared for discharge we did have extensive discussion about the importance of the need to quit alcohol use he verbalized understanding. I have also recommended an outpatient follow-up with manager travel and surgeon he verbalized understanding. We did speak to a family member of his. And also counseling was provided will give information for AA. Delirium tremens Alcohol withdrawal syndrome Metabolic encephalopathy Alcoholic hepatitis Hyperbilirubinemia with no evidence of cholecystitis Hypokalemia Disposition: HOME / SELF CARE / HOMELESS Final Discharge Diagnosis (Prints w/discharge instructions): Delirium tremens. Alcohol withdrawal syndrome. Metabolic encephalopathy. Alcoholic hepatitis. Hyperbilirubinemia with no evidence of cholecystitis. Hypokalemia Time spent for discharge: 35 mins Core Measure Documentation - Palliative Care Palliative Care/ Comfort Measures: Not Applicable - Core Measures Any of the following diagnoses?: none Exam - Physical Exam Narrative exam: VITAL SIGNS: Reviewed. GENERAL: The patient appears normally developed, Vital signs as documented. HEAD: No signs of head trauma. EYES: Pupils are equal. Extraocular motions intact. EARS: Hearing grossly intact. MOUTH: Oropharynx is normal. NECK: No adenopathy, no JVD. CHEST: Chest with clear breath sounds bilaterally. No wheezes, rales, or rhonchi. CARDIAC: Regular rate and rhythm. S1 and S2, without murmurs, gallops, or rubs. VASCULAR: No Edema. Peripheral pulses normal and equal in all extremities. ABDOMEN: Soft, non tender and non distended. No rebound or guarding, and no masses palpated. Bowel Sounds normal. MUSCULOSKELETAL: Good range of motion of all major joints. Extremities without clubbing, cyanosis or edema. NEUROLOGIC EXAM: Alert and oriented x 3 No focal sensory or strength deficits. Speech normal. Follows commands. PSYCHIATRIC: Mood normal. SKIN: detail exam as documented in skin assessment - Constitutional Vitals: Temp Pulse Resp BP Pulse Ox 98.8 F 66 22 124/77 97 05/24/22 03:00 05/24/22 04:30 05/24/22 04:30 05/24/22 04:00 05/24/22 04:30 Plan Activity: advance as tolerated, fall precautions Diet: low fat Special Instructions: record daily weights, record daily BP diary, other (must quit ETOH AND ENROLL IN AA if needed) Follow up with: [facility] [Provider Group] - 3-5 Days [facility] [Provider Group] - 3-5 Days Prescriptions: Folic Acid [Folvite] 1 mg PO QDAY #30 tablet chlordiazePOXIDE [Librium] 25 mg PO Q4HR PRN #12 capsule PRN Reason: Alcohol Withdrawal Multivitamin Tab [Multiple Vitamin TAB (Theragran)] 1 each PO QDAY #30 tablet Thiamine HCl [Vitamin B-1] 100 mg PO DAILY #30 tab
[2022-05-24 15:01] VITALS: BP 126/77
--- NOTE | 2022-05-25 17:36 | Electrocardiograph Report ---
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
== END 2022-05-24 15:06 | disposition home or self-care (01) | DRG 432 ==
LOC: ED 13:07 → IMCU 18:24
PROVIDERS: ADMIT Internal Medicine; ATTEND Internal Medicine
DX: K70.10 Alcoholic hepatitis without ascites (principal); G93.41 Metabolic encephalopathy; E87.2 Acidosis; F10.231 Alcohol dependence with withdrawal delirium; F41.9 Anxiety disorder, unspecified; E80.6 Other disorders of bilirubin metabolism; E87.6 Hypokalemia; E83.42 Hypomagnesemia; E86.0 Dehydration; Z82.49 Family history of ischemic heart disease and other diseases of the circulatory system; K21.9 Gastro-esophageal reflux disease without esophagitis; Y90.9 Presence of alcohol in blood, level not specified
CPT/HCPCS: 36415; 71045; 74177; 76705; 80048; 80053; 80076; 80320; 83690; 83735; 85025; 85610; 85730; 93005; G0378; J3490; C9113; G0480; J2060; J2270; J2405; J2765; J3360; J3411; J3475; J3480; J7030; Q9967